=== PATIENT | male | born 1980 | race Caucasian/White ===

== ENCOUNTER 2018-09-02 20:30 | Emergency (ER) | payer MEDICAID ==
[~2018-09-02] VITALS: Ht 160 cm; Wt 79.2 kg
[~2018-09-02 20:30] MED LIST: GENT30CR TOP
[2018-09-02 20:32] VITALS: BP 139/79; PULSE 84; RESP 19; Ht 160 cm; Wt 79.2 kg
[2018-09-02] MEDS ORDERED: KETOROLAC 60 MG INJ IM STA (21:46)
[2018-09-02] MEDS ORDERED: HYDROCODONE/APAP (5/325) TAB PO ONE (22:00)
[2018-09-02] MEDS ORDERED: HYDR-4011 PO (22:10)
[2018-09-02] MEDS ORDERED: IBUP800T48 PO (22:10)
--- NOTE | 2018-09-02 22:13 | ERD ---
ER Documentation Chief Complaint Chief Complaint C/O LOWER BACK PAIN TODAY HPI 38-year-old male presents with sudden onset of right lower back pain after lifting today. He denies a bowel bladder incontinence, weakness, fever or history of back problems. ROS All systems reviewed and are negative except as per history of present illness. Medications Home Meds Active Scripts Ibuprofen* (Motrin*) 800 Mg Tab, 800 MG PO Q6, #20 TAB Prov:MAYELIN EDWARDS MD 09/02/18 Hydrocodone/Acetaminophen ([place] 5-325 Tablet) 1 Each Tablet, 1 TAB PO Q6H PRN for PAIN, #7 TAB Prov:MAYELIN EDWARDS MD 09/02/18 Gentamicin Sulfate* (Gentamicin Sulfate* Oint) 0.1% - 15 gm Oint, 1 APPLIC TOP TID for 7 Days, TUB Prov:MORENO BRANDT MD 10/31/15 Allergies Allergies: Coded Allergies: No Known Drug Allergies (Verified Allergy, Unknown, 02/14/16) PMhx/Soc Medical and Surgical Hx: pt denies Medical Hx, pt denies Surgical Hx History of Surgery: No Anesthesia Reaction: No Hx Neurological Disorder: No Hx Respiratory Disorders: No Hx Cardiac Disorders: Yes (HTN) Hx Psychiatric Problems: No Hx Miscellaneous Medical Probl: Yes (H-PYLORY) Hx Alcohol Use: Yes (ocassional ) Hx Substance Use: No Hx Tobacco Use: No Smoking Status: Never smoker FmHx Family History: No diabetes, No coronary disease, No other Physical Exam Vitals Vital Signs Date Temp Pulse Resp B/P (MAP) Pulse Ox O2 O2 Flow FiO2 Time Delivery Rate 09/02/18 97.8 84 19 139/79 98 20:32 (99) Physical Exam Const: No acute distress Head: Atraumatic Eyes: Normal Conjunctiva ENT: Normal External Ears, Nose and Mouth. Neck: Full range of motion. No meningismus. Resp: Clear to auscultation bilaterally Cardio: Regular rate and rhythm, no murmurs Abd: Soft, non tender, non distended. Normal bowel sounds Skin: No petechiae or rashes Back: No midline or flank tenderness. Tenderness right L4-5 paraspinous muscles. Positive straight leg raise mildly. Patient has no deficits or weakness. Ext: No cyanosis, or edema Neur: Awake and alert Psych: Normal Mood and Affect Results 24 hrs Current Medications Medications Dose Sig/Bella Start Time Status Last (Trade) Ordered Route PRN Stop Time Admin Dose Reason Admin Ketorolac 60 mg ONCE STAT 09/02/18 DC 09/02/18 Tromethamine IM 21:46 22:00 (Toradol) 09/02/18 21:47 1 tab ONCE ONCE 09/02/18 DC 09/02/18 Acetaminophen PO 22:00 21:59 / 09/02/18 22:01 Hydrocodone Bitart ([place] (5/325)) Procedures/MDM Patient given Toradol 60 mg IM and Campbell 5 mg by mouth. Patient resents with signs and symptoms of acute lumbar strain without signs of cauda equina syndrome, epidural abscess, deficits, bacterial infection, genitourinary etiology. X-rays deferred via shared decision making given absence of trauma no mechanism to suggest fracture and patient agrees. Patient was treated with a short course of Campbell, ibuprofen, instructions for back exercises, primary care follow-up and return precautions for fevers, weakness, new or worsening symptoms as directed and aftercare instructions. The patient was stable with no new co mplaints during the ER course. Clinically, there is no current evidence to suggest meningitis, sepsis, acute abdomen, pneumonia, stroke, acute coronary syndrome, pulmonary embolism, aortic dissection or any other emergent condition appearing to require further evaluation or hospitalization. Patient counseled regarding my diagnostic impression and care plan. Prior to discharge all questions answered. Pt agrees with treatment plan and understands strict return precautions. Pt is instructed to follow up with primary care provider within 24- 48 hours. Precautionary instructions provided including instructions to return to the ER if not improving or for any worsening or changing symptoms or concerns. Departure Diagnosis: Primary Impression: Back pain Back pain location: low back pain Chronicity: acute Back pain laterality: right Sciatica presence: without sciatica Qualified Codes: M54.5 - Low back pain Condition: Stable Patient Instructions: Back Exercises, Lumbar, Back Pain (Acute Or Chronic) Additional Instructions: Cheque otro vez con trammell doctor primario en el proximo rodriguez or regresa para mas o nueva simptomas. MAYELIN EDWARDS MD Sep 02, 2018 22:13
== END 2018-09-02 22:20 | disposition home or self-care (01) ==
LOC: FTE 20:30
DX: M54.5 Low back pain (principal); I10 Essential (primary) hypertension
CPT/HCPCS: 96372; J1885; Z7502; Z7610

== ENCOUNTER 2018-10-07 17:18 | Emergency (ER) | payer MEDICAID ==
[~2018-10-07] VITALS: Ht 172.7 cm; Wt 80.6 kg
[~2018-10-07 17:18] MED LIST changes: +HYDR-4011 PO; +IBUP800T48 PO
[2018-10-07 17:26] VITALS: Ht 172.7 cm; Wt 80.6 kg
[2018-10-07] MEDS ORDERED: KETOROLAC 60 MG INJ IM STA (21:07)
--- NOTE | 2018-10-07 21:07 | ERD ---
ER Documentation Chief Complaint Chief Complaint lower back pain s/p slip and fall yesterday HPI This is a 38-year-old male who presents here in emergency department with complaints of lower back pain that started yesterday at around 12 noon. Stated that he was walking fast, while raining, on a slippery ground, slipped, fell on his back on a concrete ground. Denies head injury, loss of conscious, neck pain, neck stiffness, difficult swallowing or difficult breathing lying flat, shoulder pain, chest pain, abdominal pain, nausea, vomiting, constipation, diarrhea, urinary symptoms, loss of bowel bladder control, numbness or tingling sensation, dizziness prior to fall, fever, chills, seizures. No past medical history. No surgeries. Does not take any prescription medication at home. ROS All systems reviewed and are negative except as per history of present illness. Medications Home Meds Active Scripts Cyclobenzaprine Hcl* (Cyclobenzaprine Hcl*) 10 Mg Tablet, 10 MG PO TID PRN for MUSCLE SPASMS, #15 TAB Prov:KUN VELÁZQUEZAR F 10/07/18 Ibuprofen* (Motrin*) 800 Mg Tab, 800 MG PO Q6H PRN for PAIN AND OR ELEVATED TEMP, #30 TAB Prov:PASILABAN,KLAR F 10/07/18 Ibuprofen* (Motrin*) 800 Mg Tab, 800 MG PO Q6, #20 TAB Prov:MAYELIN EDWARDS MD 09/02/18 Hydrocodone/Acetaminophen ([place] 5-325 Tablet) 1 Each Tablet, 1 TAB PO Q6H PRN for PAIN, #7 TAB Prov:MAYELIN EDWARDS MD 09/02/18 Gentamicin Sulfate* (Gentamicin Sulfate* Oint) 0.1% - 15 gm Oint, 1 APPLIC TOP TID for 7 Days, TUB Prov:MORENO BRANDT MD 10/31/15 Allergies Allergies: Coded Allergies: No Known Drug Allergies (Verified Allergy, Unknown, 02/14/16) PMhx/Soc Medical and Surgical Hx: pt denies Surgical Hx History of Surgery: No Anesthesia Reaction: No Hx Neurological Disorder: No Hx Respiratory Disorders: No Hx Cardiac Disorders: No Hx Psychiatric Problems: No Hx Miscellaneous Medical Probl: Yes (H.Pylori) Hx Alcohol Use: No Hx Substance Use: No Hx Tobacco Use: No Smoking Status: Never smoker Physical Exam Vitals Vital Signs Date Temp Pulse Resp B/P (MAP) Pulse Ox O2 O2 Flow FiO2 Time Delivery Rate 10/07/18 97.4 76 16 140/88 97 Room Air 22:36 (105) 10/07/18 97.3 67 18 127/81 97 17:26 (96) Physical Exam Const: No acute distress Head: Atraumatic. Scalp is intact. Normocephalic head. Eyes: Normal Conjunctiva ENT: Normal External Ears, Nose and Mouth. Neck: Full range of motion. No meningismus. Resp: Clear to auscultation bilaterally Cardio: Regular rate and rhythm, no murmurs Abd: Soft, non tender, non distended. Normal bowel sounds Skin: No petechiae or rashes Back: No midline or flank tenderness. C-spine/T-spine are midline with good and full range of motion and is no swelling/bulging/point tenderness. T-spine is in midline with no bulging/swelling/discoloration but has pain to range of motion. Bilateral hips are stable and unremarkable. No saddle anesthesia. Able to perform squat. Able to bear weight on left lower extremity. Able to bear weight on right lower extremity. Positive straight leg test bilaterally. Positive cross straight leg test bilaterally. No neurovascular deficit. Amb ulatory with steady gait. Ext: No cyanosis, or edema Neur: Awake and alert. No neurological deficits. Psych: Normal Mood and Affect Results 24 hrs Current Medications Medications Dose Sig/Bella Start Time Status Last (Trade) Ordered Route PRN Stop Time Admin Dose Reason Admin Ketorolac 60 mg ONCE STAT 10/07/18 DC 10/07/18 Tromethamine IM 21:07 21:13 (Toradol) 10/07/18 21:09 1 tab ONCE ONCE 10/07/18 DC 10/07/18 Acetaminophen PO 21:30 21:13 / 10/07/18 21:31 Hydrocodone Bitart ([place] ()) Procedures/MDM Diagnostic tests: X-ray of the L-spine: Unremarkable lumbar spine. Treatment: Toradol IM. [place] p.o. Re-evaluation: Denies pain. No saddle anesthesia. No neurovascular deficit. Ambulatory with steady gait. Differential diagnosis I have low suspicion for fracture, kidney stones, cauda equina syndrome, renal failure, AAA. Final diagnosis: Back strain, back pain with sciatica. Prescription: Motrin. Flexeril. Follow-up with PCP in the next 24-48 hours. Come back here in the emergency department for any new symptoms or any worsening symptoms. All questions and concerns were answered. Patient and family members verbalized understanding and agreed with plan of care. Hemodynamically stable on discharge. Departure Diagnosis: Primary Impression: Back pain Additional Impression: Injury of back Condition: Stable Additional Instructions: Follow-up with PCP in the next 24-48 hours. Come back here in the emergency department for any new symptoms or any worsening symptoms. JAMIL VELÁZQUEZ Oct 07, 2018 21:07
[2018-10-07] MEDS ORDERED: HYDROCODONE/APAP (10/325) TAB PO ONE (21:30)
[2018-10-07] MEDS ORDERED: IBUP800T48 PO (22:27)
[2018-10-07] MEDS ORDERED: CYCL10TA7 PO (22:28)
[2018-10-07 22:36] VITALS: BP 140/88; PULSE 76; RESP 16
== END 2018-10-07 22:37 | disposition home or self-care (01) ==
LOC: FTE 17:18
DX: S39.92XA Unspecified injury of lower back, initial encounter (principal); W01.0XXA Fall on same level from slipping, tripping and stumbling without subsequent striking against object, initial encounter; Y92.9 Unspecified place or not applicable
CPT/HCPCS: 72100; 96372; J1885; Z7502; Z7610

== ENCOUNTER 2018-10-08 00:08 | Emergency (ER) | payer SELFPAY ==
[~2018-10-08] VITALS: Ht 167.6 cm; Wt 83.0 kg
[~2018-10-08 00:08] MED LIST changes: +CYCL10TA7 PO
[2018-10-08 00:12] VITALS: PULSE 60; RESP 16; Ht 167.6 cm; Wt 83.0 kg
[2018-10-08 01:03] VITALS: BP 124/74
== END 2018-10-08 01:02 | disposition left against medical advice (07) ==
LOC: FTE 00:08
DX: Z53.21 Procedure and treatment not carried out due to patient leaving prior to being seen by health care provider (principal)
CPT/HCPCS: 93005